=== PATIENT | female | born 1955 | race Caucasian/White ===

== ENCOUNTER → 2021-03-06 | Outpatient (CLI) | payer OTHER ==
[~2021-03-06] MED LIST: B Complex1 EAC2 PO; CETI5 PO; CHOL10002; CIPR500 PO; Daily Multiple1 EACH PO; EPIN.3I IM; PRED20 PO; VENL75ER
[2021-03-13 13:11] LABS: HPV 16 Negative (Negative); HPV 18 Negative (Negative); HPV OTHER HR TYPES Negative (Negative)
== END | disposition home or self-care (01) ==
LOC: LAB SHORT 18:09 → LAB 18:09
PROVIDERS: Obstetrics & Gynecology
DX: Z12.4 Encounter for screening for malignant neoplasm of cervix (principal)
CPT/HCPCS: 87624; G0123

== ENCOUNTER 2023-05-23 14:04 | Inpatient (IN) | payer MEDICARE ==
[~2023-05-23] VITALS: Ht 165.1 cm; Wt 65.8 kg
[2023-05-23 14:49] LABS: BASOPHILS ABSOLUTE AUTO 0.05 K/mm3 (0.00-0.23); BASOPHILS PERCENT AUTO 1 % (0-2); EOSINOPHILS ABSOLUTE AUTO 0.14 K/mm3 (0.00-0.68); EOSINOPHILS PERCENT AUTO 2 % (0-6); Hematocrit 43.2 % (33.0-51.0); Hemoglobin 15.1 g/dL (11.5-16.0); IMMATURE GRAN ABSOLUTE AUTO 0.03 K/mm3 (0.00-0.10); IMMATURE GRAN PERCENT AUTO 0 % (0-1); LYMPHOCYTES ABSOLUTE AUTO 1.24 K/mm3 (0.84-5.20); LYMPHOCYTES PERCENT AUTO 15 % (21-46); MONOCYTES ABSOLUTE AUTO 0.69 K/mm3 (0.16-1.47); MONOCYTES PERCENT AUTO 8 % (4-13); Mean Corpuscular HGB 32.4 pg (26.0-34.0); Mean Corpuscular Volume 93 fL (80-100); Mean Platelet Volume 9.7 fL (9.1-12.4); NEUTROPHILS ABSOLUTE AUTO 6.29 K/mm3 (1.96-9.15); NEUTROPHILS PERCENT AUTO 74 % (41-73); Platelet Count 248 K/mm3 (150-400); RDW Coefficient Variation 11.9 % (11.7-14.2); RDW Standard Deviation 40.5 fL (35.1-46.3); Red Blood Cell Count 4.66 M/mm3 (3.80-5.20); White Blood Cell Count 8.44 K/mm3 (4.00-11.30)
[2023-05-23 15:12] LABS: Albumin, Blood 3.9 g/dL (3.4-5.0); Albumin/Globulin Ratio 1.1 (0.8-1.8); Bilirubin, Total 0.7 mg/dL (0.1-1.0); Bun/Creatinine Ratio 41.5 (12.0-20.0); Calcium, Blood 8.9 mg/dL (8.5-10.1); Creatinine, Blood 0.55 mg/dL (0.40-1.00); Globulin, Blood 3.4 g/dL (2.2-4.0); Total Protein, Blood 7.3 g/dL (6.4-8.2)
[2023-05-23 18:52] LABS: Source, Urine Clean Catch
[2023-05-23 18:57] LABS: Appearance, Urine Hazy (Clear); Bilirubin, Urine Neg (Neg); Blood, Urine 1+ (Neg); Color, Urine Yellow (P-Yellow); Glucose Qualitative, Urine Neg (Neg); Ketones, Urine 4+ (Neg); Leukocyte Esterase, Urine 3+ (Neg); Nitrite, Urine Neg (Neg); Protein, Urine 2+ (Neg); Specific Gravity, Urine 1.025 (1.003-1.022); Urobilinogen, Urine 1+ (Normal)
[2023-05-23 19:05] LABS: White Blood Cells, Urine 25-50 /hpf (0-5)
[2023-05-23 19:06] LABS: Calcium Oxalate Crystals Mod /hpf; Red Blood Cells, Urine 0-2 /hpf (0-2)
[2023-05-23 19:07] LABS: Bacteria Few /hpf; Squamous Epithelial Cells Rare /hpf (Few); Transitional Epithelial Cells Few /hpf (0-Rare)
[2023-05-23 22:16] LABS: U Amphetamine Screen Not Detected; U Barbituate Screen Not Detected; U Benzodiazapine Screen Not Detected; U Buprenorphine Screen Not Detected; U Cannabinoids Screen Not Detected; U Cocaine Screen Not Detected; U Methadone Screen Not Detected; U Methamphetamine Screen Not Detected; U Opiates Screen Not Detected; U Oxycodone Screen Not Detected; U Phencyclidine Screen Not Detected
[2023-05-23 22:43] LABS: Appearance, CSF Clear (Clear); Color, CSF No Color (No Color); RBC Count, CSF 0 /mm3 (0-0); WBC Count, CSF 15 /mm3 (0-5)
[2023-05-23 22:51] LABS: Appearance, CSF Clear (Clear); Color, CSF No Color (No Color)
[2023-05-23 22:52] LABS: RBC Count, CSF 0 /mm3 (0-0); WBC Count, CSF 27 /mm3 (0-5)
[2023-05-23 22:56] LABS: SARS-Cov-2 (COVID-19) PCR, MMC NEGATIVE (NEGATIVE)
--- NOTE | 2023-05-23 22:59 | NUR ---
PT ARRIVED TO 356 VIA WHEELCHAIR. A/O. ABLE TO STAND AND TRANSFER SELF TO BED. ORIENTED PT TO USE OF CALL LT SYSTEM. CALL LT IN REACH. PROVIDED PT WITH A SNACK AND JUICE. ON RA. RESP E/U. NO OTHER NEEDS AT THIS TIME. WILL CONTINUE TO PROVIDE CARE T/O SHIFT.
[2023-05-23 23:00] LABS: Glucose, CSF 52 mg/dL (40-70)
[2023-05-23 23:03] VITALS: BP 172/96
[2023-05-23] MEDS ORDERED: PRAV20 PO (23:26)
[2023-05-23] MEDS ORDERED: Prinivil10 MG PO (23:26)
[2023-05-23 23:29] LABS: Lymphocytes, CSF 36 % (40-80); Monocytes, CSF 20 % (15-45); Neutrophils, CSF 44 % (0-6)
[2023-05-23 23:35] LABS: Eosinophils, CSF 1 % (0-0); Lymphocytes, CSF 35 % (40-80); Monocytes, CSF 28 % (15-45); Neutrophils, CSF 36 % (0-6)
[2023-05-24 00:01] LABS: Cryptococcus Neoformans/Gattii Not Detected (NOT DETECT); Enterovirus Not Detected (NOT DETECT); Escherichia Coli K1 Not Detected (NOT DETECT); Haemophilus Influenza Not Detected (NOT DETECT); Herpes Simplex Virus 1 Not Detected (NOT DETECT); Herpes Simplex Virus 2 Not Detected (NOT DETECT); Human Herpesvirus 6 Not Detected (NOT DETECT); Human Parechovirus Not Detected (NOT DETECT); Listeria Monocytogenes Not Detected (NOT DETECT); Neisseria Meningitidis Not Detected (NOT DETECT); Streptococcus Agalactiae Not Detected (NOT DETECT); Streptococcus Pneumoniae Not Detected (NOT DETECT); Varicella Zoster Virus Not Detected (NOT DETECT)
--- NOTE | 2023-05-24 01:19 | NUR ---
PT NOT TOLERATING SCD'S TO BLE, STATES, SHE IS DEALING WITH THE NUMBNESS SENSATION IN HER LEGS THE SQUEEZING OF THE SCD'S IS MAKING IT WORSE. NO OTHER NEEDS. CALL LT IN REACH.
--- NOTE | 2023-05-24 02:42 | NUR ---
PT RESTING QUIETLY. NS INFUSING AT 100 MLS/HR. CALL LT IN REACH.
[2023-05-24 04:27] VITALS: BP 142/87
--- NOTE | 2023-05-24 05:15 | NUR ---
PT AWAKE WATCHING TV. PROVIDED PT WITH SOME JUICE AND CRACKERS. NO OTHER NEEDS. CALL LT IN REACH.
--- NOTE | 2023-05-24 05:16 | NUR ---
SHIFT SUMMARY: ER ADMIT. A/O. STATES NEEDS APPROPRIATELY. ON RA. DENIES SOB. NO CP. CONTINUES TO HAVE THE TINGLING, BURNING SENSATION LIKE A BAND WRAPPED AROUND HER RIBS FROM TO FRONT. PAIN IS TOLERABLE. HAS NOT WORSEN T/O SHIFT. NO INCONTINENCE OF BOWEL OR BLADDER NOTED. INITIAL SYMPTOMS HAS NOT WORSEN. CONTINUES TO HAVE BLE NUMBNESS. IS ABLE TO AMBULATE. NS INFUSING AT 100 MLS/HR. NO ACUTE CHANGES. WILL CONTINUE TO PROVIDE CARE UNTIL SHIFT REPORT TO ONCOMING NURSE.
[2023-05-24 07:28] VITALS: BP 128/84
[2023-05-24 15:29] VITALS: BP 156/83
--- NOTE | 2023-05-24 17:28 | NUR ---
SHIFT SUMMARY PT A&OX4, VSS, NS INFUSING @ 100, AMB IND, TOLERATING PO, VOIDING, AND DENIED PAIN. PT ADMITS TO CONTINUED NUMBNESS FROM MID CHEST THROUGH BLE, BUT NO TINGLING. PT WAS SCHEDULED TO HAVE MRI, BUT MRI DOWN X2 DAYS UNTIL REPARIED. PT HAD ECHO THIS SHIFT, SEE ECHO RESULTS. ANGIOTENSIN LAB WAS ORDERED THIS SHIFT AND LAB ABLE TO ADD TO CSF STUDIES. CALL LIGHT WITHIN REACH AND PT ABLE TO MAKE NEEDS KNOWN. PLAN FOR PT TO CONTINUE TO STAY IN THE HOSPITAL UNTIL MRI CAN BE PERFORMED.
[2023-05-24 20:14] VITALS: BP 154/88
--- NOTE | 2023-05-24 22:59 | NUR ---
SKIN RED PT REPORTED THAT HER ARMS WERE RED. PT NOTED TO BE RED/FLUSHED ALL OVER. REDNESS BLANCHES. DENIED ITCHING, SOB OR FEELING DIFFERENT. SHE DENIED HAVING A HOT FLASH OR BEING HOT. SKIN DRY, WARM. NO RAISED ARE NOTED.
--- NOTE | 2023-05-25 04:06 | NUR ---
NOTE PT RESTING QUIETLY. RESPIRATIONS EVEN AND UNLABORED. FLUSHED LOOK TO HER SKIN CONTINUES. UP AD KARLA. VSS. NO CHANGE IN NUMBNESS. LOC STABLE. CARE ONGOING.
[2023-05-25 04:22] VITALS: BP 138/79
[2023-05-25 05:10] LABS: BASOPHILS ABSOLUTE AUTO 0.03 K/mm3 (0.00-0.23); BASOPHILS PERCENT AUTO 0 % (0-2); EOSINOPHILS ABSOLUTE AUTO 0.04 K/mm3 (0.00-0.68); EOSINOPHILS PERCENT AUTO 0 % (0-6); Hematocrit 37.5 % (33.0-51.0); IMMATURE GRAN ABSOLUTE AUTO 0.04 K/mm3 (0.00-0.10); IMMATURE GRAN PERCENT AUTO 0 % (0-1); LYMPHOCYTES ABSOLUTE AUTO 2.11 K/mm3 (0.84-5.20); LYMPHOCYTES PERCENT AUTO 18 % (21-46); MONOCYTES ABSOLUTE AUTO 1.05 K/mm3 (0.16-1.47); MONOCYTES PERCENT AUTO 9 % (4-13); Mean Corpuscular HGB 32.3 pg (26.0-34.0); Mean Corpuscular HGB Conc 34.7 g/dL (31.5-36.5); Mean Corpuscular Volume 93 fL (80-100); Mean Platelet Volume 10.3 fL (9.1-12.4); NEUTROPHILS ABSOLUTE AUTO 8.78 K/mm3 (1.96-9.15); NEUTROPHILS PERCENT AUTO 73 % (41-73); Platelet Count 252 K/mm3 (150-400); RDW Coefficient Variation 11.9 % (11.7-14.2); RDW Standard Deviation 41.2 fL (35.1-46.3); Red Blood Cell Count 4.02 M/mm3 (3.80-5.20); White Blood Cell Count 12.05 K/mm3 (4.00-11.30)
[2023-05-25 05:43] LABS: Albumin, Blood 3.2 g/dL (3.4-5.0); Albumin/Globulin Ratio 1.1 (0.8-1.8); Bilirubin, Total 0.5 mg/dL (0.1-1.0); Bun/Creatinine Ratio 35.2 (12.0-20.0); Calcium, Blood 8.6 mg/dL (8.5-10.1); Creatinine, Blood 0.46 mg/dL (0.40-1.00); Globulin, Blood 2.8 g/dL (2.2-4.0); Potassium, Blood 3.7 mmol/L (3.5-5.5)
[2023-05-25 07:25] VITALS: BP 132/82
[2023-05-25 16:12] VITALS: BP 160/88
--- NOTE | 2023-05-25 17:17 | NUR ---
SHIFT SUMMARY PT WAS TRANSPORTED TO [facility] FOR MRI TO BE COMPLETED. [facility] HERE TO PICK HER UP AT 1000. RN GOING WITH PT TO CLINIC IN AMBULANCE. INDPENDENT IN ROOM. REPORTS NO CHANGE IN SENSATION FROM DIAPHRAGM DOWN.
[2023-05-25 19:29] VITALS: BP 174/95
[2023-05-25 23:16] LABS: VARICELLA-ZOSTER VIRUS AB,IGM 0.02 ISR (<=0.90)
[2023-05-26 00:19] VITALS: BP 162/91
[2023-05-26 03:30] VITALS: BP 133/83
[2023-05-26 05:09] LABS: BASOPHILS ABSOLUTE AUTO 0.01 K/mm3 (0.00-0.23); BASOPHILS PERCENT AUTO 0 % (0-2); EOSINOPHILS PERCENT AUTO 0 % (0-6); Hematocrit 39.4 % (33.0-51.0); Hemoglobin 13.9 g/dL (11.5-16.0); IMMATURE GRAN ABSOLUTE AUTO 0.03 K/mm3 (0.00-0.10); IMMATURE GRAN PERCENT AUTO 0 % (0-1); LYMPHOCYTES ABSOLUTE AUTO 0.69 K/mm3 (0.84-5.20); LYMPHOCYTES PERCENT AUTO 8 % (21-46); MONOCYTES ABSOLUTE AUTO 0.05 K/mm3 (0.16-1.47); MONOCYTES PERCENT AUTO 1 % (4-13); Mean Corpuscular HGB 32.5 pg (26.0-34.0); Mean Corpuscular HGB Conc 35.3 g/dL (31.5-36.5); Mean Corpuscular Volume 92 fL (80-100); NEUTROPHILS ABSOLUTE AUTO 8.01 K/mm3 (1.96-9.15); NEUTROPHILS PERCENT AUTO 91 % (41-73); Platelet Count 268 K/mm3 (150-400); RDW Coefficient Variation 11.8 % (11.7-14.2); RDW Standard Deviation 39.9 fL (35.1-46.3); Red Blood Cell Count 4.28 M/mm3 (3.80-5.20); White Blood Cell Count 8.79 K/mm3 (4.00-11.30)
[2023-05-26 06:00] LABS: Albumin, Blood 3.5 g/dL (3.4-5.0); Albumin/Globulin Ratio 1.1 (0.8-1.8); Bilirubin, Total 0.4 mg/dL (0.1-1.0); Bun/Creatinine Ratio 38.9 (12.0-20.0); Calcium, Blood 9.2 mg/dL (8.5-10.1); Creatinine, Blood 0.49 mg/dL (0.40-1.00); Globulin, Blood 3.1 g/dL (2.2-4.0); Potassium, Blood 3.9 mmol/L (3.5-5.5); Total Protein, Blood 6.6 g/dL (6.4-8.2)
--- NOTE | 2023-05-26 06:32 | NUR ---
Shift Summary No complaints except for a tightness and numbness around her middle abdomen. Per report plan is to discharge home today after last IV Solumedrol treatment. Pt was able to sleep well last. She is AOx4, independent in the room, cooperative with care. Her BP has been elevated since she arrived, I spoke to the hospitalist last night who put a 1 time order for lisinopril in, doubled her daily dose and put in a PRN order for Hydralazine for Systolic>160. BP was better after the one time extra dose of lisinopril going from 162/91 to 133/83.
[2023-05-26 08:07] VITALS: BP 146/83
[2023-05-26 08:50] LABS: HIV 1,2 COMBO ANTIGEN/ANTIBODY Negative (Negative)
[2023-05-26 12:22] LABS: ANTI-NUCLEAR AB ANA,IGG ELISA None Detected (None Detected)
[2023-05-26 12:35] LABS: MYELOPEROXIDASE (MPO) AB,IGG 0 AU/mL (0-19); SERINE PROTEINASE 3 PR3 AB,IGG 1 AU/mL (0-19)
[2023-05-26 14:33] LABS: DOUBLE-STRANDED DNA IGG ELISA 9 IU (0-24)
--- NOTE | 2023-05-26 15:42 | NUR ---
DISCHARGE SUMMARY PATIENT WITH NO ACUTE EVENTS DURING SHIFT. MEDICATION AND EDUCATION PACKET PRINTED AND REVIEWED WITH PATIENT. CONSENT SIGNED. PATIENT DISCHARGED AT 1537 AND LEFT UNIT VIA TRANSPORT CHAIR VIA PRIVATE VEHICLE.
== END 2023-05-26 15:34 | disposition home or self-care (01) | DRG 98 ==
LOC: ER 14:04 → MEDS 19:30
PROVIDERS: Family Medicine; Nurse Practitioner Acute Care; Physician Assistant; Student in an Organized Health Care Education/Training Program; ADMIT Internal Medicine
DX: G37.3 Acute transverse myelitis in demyelinating disease of central nervous system (principal); N39.0 Urinary tract infection, site not specified; I10 Essential (primary) hypertension; E78.5 Hyperlipidemia, unspecified; R01.1 Cardiac murmur, unspecified; Z11.52 Encounter for screening for COVID-19; Z28.21 Immunization not carried out because of patient refusal
CPT/HCPCS: 36415; 51798; 62270; 70553; 72156; 80053; 81001; 82607; 82945; 83516; 84157; 85025; 85651; 86038; 86140; 86225; 86430; 86592; 86618; 86787; 87070; 87086; 87205; 87389; 87483; 89051; 93306; 96374-59; 96375-59; 97112; 97162; 99283-25; A9270; A9579; G0378; J0696; J2930; J7030; U0002